=== PATIENT | female | born 1950 | race Caucasian/White ===

== ENCOUNTER → 2018-02-10 | Day surgery (SDC) | payer OTHER ==
[~2018-02-10] MED LIST: LIDOCAINE 1% PF 2 ML VIAL. ID; LIDOCAINE 2% 100 MG/5 ML SYRINGE.; MIDAZOLAM HCL/PF 2 MG/2 ML VIAL. IV; PROPOFOL 20 ML IV; fentaNYL PF VIAL 100 MCG/2 ML VIAL IV
[2018-02-10] MEDS: IV RINGERS,LACTATED 1000ML 1,000 ML IV (08:10)
== END | disposition home or self-care (01) ==
LOC: ENDOS 07:30
DX: Z12.11 Encounter for screening for malignant neoplasm of colon (principal); K64.0 First degree hemorrhoids; Z87.891 Personal history of nicotine dependence; Z90.49 Acquired absence of other specified parts of digestive tract; Z72.89 Other problems related to lifestyle; Z87.19 Personal history of other diseases of the digestive system
CPT/HCPCS: 45378; J2704

== ENCOUNTER 2019-05-13 10:26 | Emergency (ER) | payer OTHER ==
[~2019-05-13] VITALS: Ht 172.7 cm; Wt 77.1 kg
[2019-05-13] MEDS ORDERED: KETOROLAC 30 MG/ML VIAL. IM ONE (10:45)
[2019-05-13] MEDS ORDERED: KETOROLAC 30 MG/ML VIAL. ONE (10:58)
[2019-05-13 11:05] LABS: BILIRUBIN,URINE SMALL (NEG); CLARITY,URINE CLEAR; COLOR,URINE AMBER; NITRITE,URINE NEGATIVE (NEG); PH,URINE 6.5; PROTEIN,URINE NEGATIVE (NEG-TRACE)
[2019-05-13 11:14] LABS: SQUAMOUS EPITHELIAL CELL,UR MANY /LPF
[2019-05-13 11:15] LABS: BACTERIA,URINE FEW /HPF (0-FEW); WBC,URINE OCC /HPF (0-4)
[2019-05-13] MEDS ORDERED: KETOROLAC 30 MG/ML VIAL. IV ONE (11:15)
[2019-05-13 11:18] LABS: BASO % 1 % (0-3); EOS % 0 % (0-3); HEMATOCRIT 37.3 % (36.0-47.0); HEMOGLOBIN 12.9 g/dL (12.0-15.5); LYMPH # 0.7 x10^3/uL (1.0-4.8); LYMPH % 23 % (24-48); MEAN CORPUSCULAR HEMOGLOBIN 30 pg (25-35); MEAN CORPUSCULAR HGB CONC 35 g/dL (31-37); MEAN CORPUSCULAR VOLUME 87 fL (79-100); MONO # 0.4 x10^3/uL (0.0-1.1); MONO % 13 % (0-9); NEUT # 1.9 x10^3uL (1.8-7.7); NEUT % 62 % (31-73); PLATELET COUNT 147 x10^3/uL (140-400); RED BLOOD COUNT 4.27 x10^6/uL (3.50-5.40); RED CELL DISTRIBUTION WIDTH 12.5 % (11.5-14.5)
[2019-05-13 11:25] LABS: CALCIUM 8.4 mg/dL (8.5-10.1); CREATININE 0.9 mg/dL (0.6-1.0); GFR 62.5; POTASSIUM 4.1 mmol/L (3.5-5.1)
[2019-05-13 11:31] LABS: ALBUMIN 3.8 g/dL (3.4-5.0); ALBUMIN/GLOBULIN RATIO 1.3 (1.0-1.7); C-REACTIVE PROTEIN 5.6 mg/L (0-3.3); TOTAL BILIRUBIN 0.6 mg/dL (0.2-1.0); TOTAL PROTEIN 6.7 g/dL (6.4-8.2)
[2019-05-13 12:00] VITALS: BP 143/69
[2019-05-13] MEDS ORDERED: cefTRIAXone IV Push 1 GM VIAL. IVP ONE (12:15)
[2019-05-13] MEDS ORDERED: IV NORMAL SALINE 1000ML BAG 1,000 ML IV ONE (12:15)
--- NOTE | 2019-05-13 12:17 | PHYS DOC ---
Past Medical History Past Medical History: Other Additional Past Medical Histor: KIDNEY INFECTIONS, GALL STONES Past Surgical History: Appendectomy Alcohol Use: None Drug Use: None Adult General Chief Complaint Chief Complaint: FLANK PAIN HPI HPI Patient is a 68 year old female who presents with generalized malaise and myalgias past 5 days. Patient's currently on day 5 of Bactrim for treatment of kidney infection. Patient denies urinary frequency urgency dysuria, hematuria and bilateral flank pain. States she is compliant with antibiotic therapy. Denies fever chills, nausea vomiting. No history of stones. No other acute symptoms or complaints. Review of Systems Review of Systems Review symptoms as per history of present illness. All other review symptoms are negative. All other systems were reviewed and found to be within normal limits, except as documented in this note. Current Medications Current Medications Current Medications Medications (Trade) Dose Ordered Sig/Aminta Start Time Stop Time Status Last Admin Dose Admin Ceftriaxone Sodium (Rocephin) 1 gm 1X ONCE 05/13/19 12:15 05/13/19 12:16 DC 05/13/19 12:39 1 GM Ketorolac Tromethamine (Toradol 30mg Vial) 30 mg 1X ONCE 05/13/19 11:15 05/13/19 11:16 DC Sodium Chloride 1,000 ml @ 1,000 mls/hr 1X ONCE 05/13/19 12:15 05/13/19 13:14 05/13/19 12:39 1,000 MLS/HR Allergies Allergies Allergies Coded Allergies Type Severity Reaction Last Updated Verified No Known Drug Allergies 02/10/18 No Physical Exam Physical Exam Constitutional: Well developed, well nourished, no acute distress, non-toxic appearance. [] HENT: Normocephalic, atraumatic, bilateral external ears normal, oropharynx moist, nose normal. [] Eyes: PERRLA, EOMI, conjunctiva normal. [] Neck: Normal range of motion. [] Cardiovascular:Heart rate regular rhythm, no murmur [] Lungs & Thorax: Bilateral breath sounds clear to auscultation [] Abdomen: Bowel sounds normal, soft, no tenderness. [] Skin: Warm, dry, no erythema, no rash. [] Back: No tenderness, no CVA tenderness. [] Neurologic: Alert and oriented X 3, normal motor function, normal sensory function, no focal deficits noted. [] Psychologic: Affect normal, judgement normal, mood normal. [] Current Patient Data Vital Signs Vital Signs Date Time Temp Pulse Resp B/P (MAP) Pulse Ox O2 Delivery O2 Flow Rate FiO2 05/13/19 12:00 92 18 143/69 (93) 97 Room Air 05/13/19 10:29 97.7 97.7 Lab Values Laboratory Tests Test 05/13/19 10:28 05/13/19 11:08 Urine Collection Type Void Urine Color Rand Urine Clarity Clear Urine pH 6.5 Urine Specific [place] 1.025 Urine Protein Negative mg/dL (NEG-TRACE) Urine Glucose (UA) Negative mg/dL (NEG) Urine Ketones (Stick) Trace mg/dL (NEG) Urine Blood Negative (NEG) Urine Nitrite Negative (NEG) Urine Bilirubin Small (NEG) Urine Urobilinogen Dipstick 1.0 mg/dL (0.2 mg/dL) Urine Leukocyte Esterase Trace (NEG) Urine RBC 1-2 /HPF (0-2) Urine WBC Occ /HPF (0-4) Urine Squamous Epithelial Cells Many /LPF Urine Bacteria Few /HPF (0-FEW) Urine Mucus Marked /LPF White Blood Count 3.0 x10^3/uL (4.0-11.0) L Red Blood Count 4.27 x10^6/uL (3.50-5.40) Hemoglobin 12.9 g/dL (12.0-15.5) Hematocrit 37.3 % (36.0-47.0) Mean Corpuscular Volume 87 fL (79-100) Mean Corpuscular Hemoglobin 30 pg (25-35) Mean Corpuscular Hemoglobin Concent 35 g/dL (31-37) Red Cell Distribution Width 12.5 % (11.5-14.5) Platelet Count 147 x10^3/uL (140-400) Neutrophils (%) (Auto) 62 % (31-73) Lymphocytes (%) (Auto) 23 % (24-48) L Monocytes (%) (Auto) 13 % (0-9) H Eosinophils (%) (Auto) 0 % (0-3) Basophils (%) (Auto) 1 % (0-3) Neutrophils # (Auto) 1.9 x10^3uL (1.8-7.7) Lymphocytes # (Auto) 0.7 x10^3/uL (1.0-4.8) L Monocytes # (Auto) 0.4 x10^3/uL (0.0-1.1) Eosinophils # (Auto) 0.0 x10^3/uL (0.0-0.7) Basophils # (Auto) 0.0 x10^3/uL (0.0-0.2) Sodium Level 137 mmol/L (136-145) Potassium Level 4.1 mmol/L (3.5-5.1) Chloride Level 100 mmol/L (98-107) Carbon Dioxide Level 26 mmol/L (21-32) Anion Gap 11 (6-14) Blood Urea Nitrogen 14 mg/dL (7-20) Creatinine 0.9 mg/dL (0.6-1.0) Estimated GFR (Cockcroft-Gault) 62.5 BUN/Creatinine Ratio 16 (6-20) Glucose Level 156 mg/dL (70-99) H Calcium Level 8.4 mg/dL (8.5-10.1) L Total Bilirubin 0.6 mg/dL (0.2-1.0) Aspartate Amino Transferase (AST) 17 U/L (15-37) Alanine Aminotransferase (ALT) 27 U/L (14-59) Alkaline Phosphatase 60 U/L (46-116) C-Reactive Protein, Quantitative 5.6 mg/L (0-3.3) H Total Protein 6.7 g/dL (6.4-8.2) Albumin 3.8 g/dL (3.4-5.0) Albumin/Globulin Ratio 1.3 (1.0-1.7) Laboratory Tests 05/13/19 11:08 Laboratory Tests 05/13/19 11:08 EKG EKG [] Radiology/Procedures Radiology/Procedures [] Course & Med Decision Making Course & Med Decision Making Pertinent Labs and Imaging studies reviewed. (See chart for details) [Patient denies flank pain, nausea, no CVA tenderness, hematuria or dysuria. Lab work is benign. Urn culture obtained. IV fluids, Rocephin given. Will discontinue Bactrim and substitute augment. PCP follow-up recommended. Return precautions reviewed] Dragon Disclaimer Dragon Disclaimer This electronic medical record was generated, in whole or in part, using a voice recognition dictation system. Departure Departure Impression: Primary Impression: Myalgia Disposition: 01 HOME, SELF-CARE Condition: GOOD Referrals: GISELA GATES PA-C (PCP) Additional Instructions: Please discontinue Bactrim and take newly prescribed antibiotic. Increase fluids and follow-up with your PCP in 2-3 days for urine culture results. Return to the ED if new or worsening symptoms. Scripts Amoxicillin/Potassium Clav (AUGMENTIN [id number] TABLET) 1 Each Tablet 1 TAB PO BID, #10 TAB Prov: HARI SANDERS DO 05/13/19 HARI SANDERS DO May 13, 2019 12:17
[2019-05-13] MEDS ORDERED: AMOX1TAB61 PO (12:47)
== END 2019-05-13 13:40 | disposition home or self-care (01) ==
LOC: ER 10:26
DX: M79.10 Myalgia, unspecified site (principal); R53.81 Other malaise; Z90.89 Acquired absence of other organs
CPT/HCPCS: 36415; 80053; 81001; 85025; 86140; 87086; 96374; 99284; J0696; J7030